=== PATIENT | female | born 1995 | race Caucasian/White ===

== ENCOUNTER 2019-07-08 14:53 | Outpatient (CLI) | payer OTHER ==
[~2019-07-08] VITALS: Ht 157.5 cm; Wt 56.4 kg
[2019-07-08 15:15] VITALS: BP 115/58
[2019-07-08] MEDS ORDERED: PNVTAB4 PO (15:19)
[2019-07-08] MEDS ORDERED: FERR325T3 PO (15:19)
[2019-07-08] MEDS ORDERED: VITA100T59 PO (15:20)
[2019-07-08 16:26] VITALS: BP 109/63
--- NOTE | 2019-07-08 16:59 | IPNPDOC ---
Text Note Date of Service The patient was seen on 07/08/19. NOTE Triage Note Jyoti is a 24yo with SIUP at approx 28wk who presents this afternoon after falling from seated position on a chair onto the floor. She states chair was wobbly and she tipped over. She did NOT hit her belly. No vaginal bleeding. No pain, no ctx, no LOF. She feels good movement. Vitals wnl, afebrile General: WDWN, resting comfortably in bed Abdomen: soft, gravid, NTTP Extremities: no edema of BLE Cat I FHRT with bl 140's, +accels, -decels, mod cecy [place]: some slight uterine irritability that completely resolved with hydration Assessment: Jyoti is a 24yo with SIUP at approx 28wk with NO evidence of placental abruption after fall from seated position onto floor withOUT hitting her belly. No ctx. Reassuring status. Normal vitals with benign exam. Plan: -discharge to home -keep next regularly scheduled OB visit on Tuesday -tylenol or warm shower for any discomfort -return precautions discussed Dr. Nida Michael MD VS,Tegan, I+O VS, Tegan, I+O Vital Signs Date Time Temp Pulse Resp B/P (MAP) Pulse Ox O2 Delivery O2 Flow Rate FiO2 07/08/19 16:26 80 18 109/63 (78) 07/08/19 15:15 98.2 Nida Michael MD Jul 08, 2019 16:59
== END 2019-07-08 16:55 | disposition home or self-care (01) ==
LOC: M LDO 14:53
PROVIDERS: ATTEND Obstetrics & Gynecology
DX: Z04.3 Encounter for examination and observation following other accident (principal); W07.XXXA Fall from chair, initial encounter; Y92.89 Other specified places as the place of occurrence of the external cause; Y93.89 Activity, other specified; Y99.9 Unspecified external cause status; Z3A.28 28 weeks gestation of pregnancy
CPT/HCPCS: G0378; G0463

== ENCOUNTER → 2019-08-16 | Outpatient (REF) | payer OTHER ==
[~2019-08-16] MED LIST: FERR325T3 PO; PNVTAB4 PO; VITA100T59 PO
== END ==
LOC: M SFHCLERA 13:26
PROVIDERS: ATTEND Nurse Practitioner Family
DX: J00 Acute nasopharyngitis [common cold] (principal)

== ENCOUNTER 2019-09-25 08:00 | Outpatient (CLI) | payer OTHER ==
[~2019-09-25] VITALS: Ht 157.5 cm; Wt 62.4 kg
[2019-09-25 08:34] VITALS: BP 105/60
--- NOTE | 2019-09-25 09:37 | IPNPDOC ---
Text Note Date of Service The patient was seen on 09/25/19. NOTE S: Ms. Penny is a 24yo at 39+6wks, EDC [id number] by LMP of [id number], presents to LND Triage for labor check. She reports +FM, denies LOF/VB. She states she has been feeling q3-5 minute contractions that started at 0500 this morning. She has no other concerns today. Her has been mostly uncomplicated. Rh Negative (A Negative) and received Rhogam at 28 weeks gestation. GBS Negative HIV Negative 1hr glucose 143; 3hr WNL O: VSS, BP normotensive, afebrile FHR 140s, moderate variability, positive accels, no decels noted CTX, mild by palpation only and occassional; not detected on TOCO VE: 60/-3, VTX by palpation A: Uncomplicated in early labor with reactive NST P: Discharged home with labor/danger precautions Early labor comfort measures reviewed f/u PRN or at TIA appointment [id number] Pt and spouse verbalized an understanding VS,Fishbone, I+O VS, Fishbone, I+O Vital Signs Date Time Temp Pulse Resp B/P (MAP) Pulse Ox O2 Delivery O2 Flow Rate FiO2 09/25/19 08:34 99.6 96 18 105/60 (75) VENUS PONCE CNM Sep 25, 2019 09:37
[2019-09-25 21:39] VITALS: BP 123/76
== END 2019-09-25 09:31 | disposition home or self-care (01) ==
LOC: M LDO 08:00
PROVIDERS: ATTEND Registered Nurse Maternal Newborn
DX: O47.1 False labor at or after 37 completed weeks of gestation (principal); Z3A.39 39 weeks gestation of pregnancy; Z79.899 Other long term (current) drug therapy
CPT/HCPCS: 59025; G0378; G0463

== ENCOUNTER 2019-09-25 14:17 | Outpatient (CLI) | payer OTHER ==
[~2019-09-25] VITALS: Ht 157.5 cm; Wt 64.0 kg
--- NOTE | 2019-09-25 15:18 | IPNPDOC ---
Text Note Date of Service The patient was seen on 09/25/19. NOTE S: Ms. Penny is a 24yo at 39+6wks who is returning to [facility] for a repeat labor check. Pt states her contractions have become longer and stronger, q5 minutes lasting 45 seconds and unbearable. She reports +FM, denies LOF/VB. O: VSS FHR 140s, moderate variability, +accels, no decels noted CTX: presents and irregular, 4-7 minutes apart, mild by palpation VE: 3.5/70/-2, posterior, BBOW palpated A: Uncomplicated in early labor with reactive NST P: Pt discharged home with progressing labor/danger precautions Early labor comfort measures reviewed f/u PRN Pt and spouse verbalized an understanding VENUS PONCE CNM Sep 25, 2019 3:18 pm
== END 2019-09-25 15:06 | disposition home or self-care (01) ==
LOC: M LDO 14:17
PROVIDERS: ATTEND Registered Nurse Maternal Newborn
DX: O47.1 False labor at or after 37 completed weeks of gestation (principal); Z3A.39 39 weeks gestation of pregnancy; Z79.899 Other long term (current) drug therapy
CPT/HCPCS: 59025; G0378

== ENCOUNTER 2019-09-25 20:40 | Inpatient (IN) | payer OTHER ==
[~2019-09-25] VITALS: Ht 157.5 cm; Wt 62.0 kg
[2019-09-25 20:55] VITALS: BP 123/76
[2019-09-25] MEDS ORDERED: NS 1,000 ML IV ONE (22:00)
[2019-09-25] MEDS ORDERED: NS 1,000 ML IV SCH (22:00)
[2019-09-25] MEDS ORDERED: BUTORPHANOL 2 MG/ML INJ (J0595) IV ONE (22:15)
[2019-09-25] MEDS ORDERED: PROMETHAZINE INJ 25 MG/ML VIAL (J2550) IV ONE (22:15)
[2019-09-26] VITALS (28 sets, daily range): BP systolic 103–135; BP diastolic 51–92
[2019-09-26] MEDS ORDERED: LR 1,000 ML IV SCH (00:45)
[2019-09-26] MEDS ORDERED: FENTANYL 2MCG/ML ROPIVACAINE 0.2% IN 0.9% NACL 100ML IVBAG As Ordered ONE (01:09)
[2019-09-26 01:13] LABS: HEMATOCRIT 34.3 % (36.0-47.0); MEAN CORPUSCULAR HEMOGLOBIN 31.7 pg (27.0-33.0); MEAN CORPUSCULAR VOLUME 90.7 fl (80.0-96.0); PLATELET COUNT, AUTOMATED 201 10^3/uL (150-450); RED BLOOD COUNT 3.78 10^6/uL (4.00-5.40); WHITE BLOOD COUNT 11.7 10^3/uL (4.0-10.0)
[2019-09-26] MEDS ORDERED: EPIDURAL/PCA KEYS XX PRN (02:15)
[2019-09-26] MEDS ORDERED: NALOXONE INJ 0.4 MG/1 ML VIAL (J2310) IV PRN (02:15)
[2019-09-26] MEDS ORDERED: FENTANYL/ROPIVACAINE/NACL BAG 100 ML EPIDURAL SCH (02:15)
[2019-09-26] MEDS ORDERED: ONDANSETRON 4MG/2ML VIAL (J2405) IV PRN (02:15)
[2019-09-26] MEDS ORDERED: EPIDURAL COMMENT XX SCH (02:15)
[2019-09-26] MEDS ORDERED: ePHEDrine SULFATE 25 MG/5 ML(5MG/ML) SYRINGE IV PRN (02:15)
[2019-09-26] MEDS ORDERED: diphenhydrAMINE INJ 50MG/ML VIAL (J1200) IV PRN (02:15)
[2019-09-26] MEDS ORDERED: REFRIGERATOR IV KEYS XX PRN (02:15)
[2019-09-26] MEDS ORDERED: LACTATED RINGER'S 1000 ML IV PRN (02:15)
[2019-09-26] MEDS ORDERED: OXYTOCIN 30 UNITS IN 0.9% NaCl 500ML IV BAG (J2590) As Ordered ONE (03:06)
[2019-09-26] MEDS ORDERED: OXYTOCIN DRIP 30 UNITS in IV 1 EA IV SCH (03:45)
[2019-09-26 05:54] LABS: CORD GAS HCO3 V 21.9 MEQ/L; CORD GAS O2 SAT V 63.4 %; CORD GAS PCO2 V 42.5 mmHg; CORD GAS PH V 7.329 UNITS; CORD GAS PO2 V 27.5 mmHg; CORD GAS SBC V 20.2 MEQ/L; CORD GAS TCO2 V 23.2 MEQ/L
[2019-09-26 05:56] LABS: CORD GAS ABE A -3.2; CORD GAS HCO3 A 27.7 MEQ/L; CORD GAS O2 SAT A 15.1 %; CORD GAS PCO2 A 72.8 mmHg; CORD GAS PH A 7.198 UNITS; CORD GAS PO2 A 12.1 mmHg; CORD GAS SBC A 19.4 MEQ/L; CORD GAS TCO2 A 29.9 MEQ/L
[2019-09-26] MEDS ORDERED: OXYTOCIN INJ 10 UNITS/ML VIAL (J2590) As Ordered ONE (06:04)
[2019-09-26] MEDS ORDERED: DIBUCAINE 1% OINTMENT 30GM TOP PRN (06:15)
[2019-09-26] MEDS ORDERED: ACETAMINOPHEN TAB 650MG DOSE (2X325MG) PO PRN (06:15)
[2019-09-26] MEDS ORDERED: METHYLERGONOVINE MALEATE 0.2 MG TAB PO PRN (06:15)
[2019-09-26] MEDS ORDERED: OXYTOCIN INJ 10 UNITS/ML VIAL (J2590) IV ONE (06:15)
[2019-09-26] MEDS ORDERED: MOM 30ML SUSPENSION UDC PO PRN (06:15)
[2019-09-26] MEDS ORDERED: OXYTOCIN DRIP 30 UNITS in IV 1 EA IV ONE (06:15)
[2019-09-26] MEDS ORDERED: IBUPROFEN 600 MG TAB PO PRN (06:15)
[2019-09-26] MEDS: IBUPROFEN 800 MG TAB PO PRN ×2 (07:10→16:20)
[2019-09-26] MEDS: PRENATAL VITAMINS CHEWABLE TABLET PO SCH (07:10)
[2019-09-26] MEDS ORDERED: SLF 3 ML SYR IV PRN (07:30)
[2019-09-26] MEDS ORDERED: SLF 3 ML SYR IV SCH (14:00)
--- NOTE | 2019-09-26 14:06 | HPE ---
DATE OF ADMISSION: 09/26/2019 HISTORY: 24-year-old, 2, para 0, abortio 1, last menstrual period (LMP) 12/20/2018, expected date of confinement (EDC) 09/26/2019 at 39 and 6. She has been seen three times in triage today and over the last 24 hours. She was kept for at least 5 hours this afternoon with no change her cervix, no vaginal loss or bleeding. PAST HISTORY: 06/2017 - 12 week spontaneous . LABS: A negative, HIV negative, hepatitis negative, RPR negative, rubella immune. Varicella immune. Pap normal. Urine negative. Gonorrhea and chlamydia negative. 1-hour glucose was 143. Her GTT 3-hour with fasting 91, one hour - 122, two hours - 114 and three hour 111. GBS is negative. Presently her urine is 1.005, pH 7, ketones +1. Blood pressure 123/76, respirations 18, pulse 99, temperature 98.6. Pelvic Examination: The cervix is soft, posterior, 3-4 cm, 80% effaced, no change from the last three previous examinations, and -3 station. She has a category one strip. Our plan of management is to hydrate the patient and give her something for sleep because of exhaustion. She will either wake up in active labor or contractions having stopped. We have tentatively booked her at 40 and 4 for induction of labor on 09/30/2019.
--- NOTE | 2019-09-26 15:50 | IPN ---
DATE: 09/26/2019 This lady, 2, para 0 was admitted after her third attempt at getting into labor. We gave her some sedation, intravenous fluids. She woke up in good active labor, had an epidural in place. On examination, she had a spontaneous rupture of membranes, time line unknown, clear liquor was noted. She was just an anterior lip at -1 station, well applied, 100% effaced, occiput transverse and a category one strip. We are going to let her labor down. Anticipate a spontaneous vaginal delivery.
[2019-09-26] MEDS: RHOGAM 300 MCG (1500 IU) INJ (J2790) IM SCH (17:21)
[2019-09-26] MEDS: MEASLES,MUMPS,RUBELLA VACCINE INJ (MMR-II) (90707) SC SCH (17:21)
[2019-09-26] MEDS: ACETAMINOPHEN 500 MG TAB PO PRN (18:50)
[2019-09-26] MEDS: DOCUSATE SODIUM 100 MG CAP PO PRN (22:42)
[2019-09-27] MEDS: IBUPROFEN 800 MG TAB PO PRN ×3 (00:15→18:51)
[2019-09-27 05:39] VITALS: BP 102/64
--- NOTE | 2019-09-27 06:17 | IPNPDOC ---
Progress Note Date of Service: Sep 27, 2019 Day#: 1 Progress Note SUBJECT: Patient is a 24-year-old 2 now Para 1 status post uncomplicated spontaneous vaginal delivery, doing well day # 1. She has been ambulating, voiding spontaneously without issue and tolerating regular diet. Breast feeding without issue. Reports lochia is like a normal period. Patient is ambulating well. Reports some cramping with . Denies any pain. OBJECTIVE: VITAL SIGNS: Within normal limits, afebrile. Alert and oriented times three. Breast without erythema. Breath sounds clear to auscultation. Heart rate: Regular rate and rhythm, no murmurs, rubs or gallops. Abdomen: Fundus firm at U-2. Soft, NTTP. Minimal lochia. Lower Extremeties without edema or tenderness. ASSESSMENT: Patient is a 24-year-old 2 now Para 1 status post uncomplicated spontaneous vaginal delivery, doing well day # 1. Vitals within normal limits, afebrile, hemodynamically stable with no evidence of infection. PLAN: 1. Continue care. 2. Tylenol and Motrin for pain. 3. Encourage breast feeding and ambulation. VS, I&O, 24H, Fishbone Vital Signs/I&O Vital Signs Date Time Temp Pulse Resp B/P (MAP) Pulse Ox O2 Delivery O2 Flow Rate FiO2 09/26/19 17:37 98.5 88 18 104/58 (73) 97 Room Air I&O- Last 24 Hours up to 6 AM 09/26/19 06:00 Intake Total 2100 ml Output Total 1000 ml Balance 1100 ml Laboratory Data 24H LABS Laboratory Tests 2 09/26/19 00:57: Nucleated Red Blood Cells % (auto) 0.0, Syphilis Serology NONREACTIVE 09/26/19 00:58: Hepatitis B Surface Antigen (Rapid) NEGATIVE 09/26/19 03:26: Serology Scanned Report Hepatitis B Testing 09/26/19 05:44: Cord Arterial Blood pH 7.198, Cord Arterial Blood PCO2 72.8, Cord Arterial Blood PO2 12.1, Cord Arterial Blood HCO3 27.7, Cord Arterial Blood Total CO2 29.9, Cord Arterial Blood Base Excess -3.2, Cord Arterial Base Excess (Standard 19.4, Cord Arterial Bld Oxygen Saturation 15.1, Cord Venous Blood pH 7.329, Cord Venous Blood PCO2 42.5, Cord Venous Blood PO2 27.5, Cord Venous Blood HCO3 21.9, Cord Venous Blood Total CO2 23.2, Cord Venous Base Excess (Actual) -4.0, Cord Venous Base Excess (Standard) 20.2, Cord Venous Blood Oxygen Saturation 63.4 CBC/BMP Laboratory Tests 09/26/19 00:57 Meggan García MD Sep 26, 2019 18:01
[2019-09-27 07:13] LABS: HEMATOCRIT 31.3 % (36.0-47.0); HEMOGLOBIN 10.7 g/dl (12.0-15.5); MEAN CORPUSCULAR HEMOGLOBIN 31.6 pg (27.0-33.0); MEAN CORPUSCULAR HGB CONC 34.2 g/dl (32.0-36.5); MEAN CORPUSCULAR VOLUME 92.3 fl (80.0-96.0); PLATELET COUNT, AUTOMATED 183 10^3/uL (150-450); RED BLOOD COUNT 3.39 10^6/uL (4.00-5.40)
[2019-09-27 07:20] VITALS: BP 108/58
[2019-09-27] MEDS: PRENATAL VITAMINS CHEWABLE TABLET PO SCH (08:27)
--- NOTE | 2019-09-27 14:00 | DN ---
DATE: 09/26/2019 This lady is a 24-year-old 2 who was admitted in spontaneous labor at 40 weeks of gestation. She had an epidural in place. Had a spontaneous vaginal delivery of a live- male , 7 pounds 9 ounces, 3430 grams, scores of 8 and 9 at one and five minutes, respectively. Arterial pH 7.19, base excess -3.2, venous pH 7.32, base excess -4.0. She did have intravenous (IV) medications as well as an epidural. She did sustain a second-degree tear through the capsule. It was repaired with a 2-0 Vicryl on a J339., both the muscle and the capsule, then the spontaneous episiotomy was repaired in the usual fashion. On examination, the uterus was well contracted under Pitocin. The sphincter was tight, intact. No occult tears. The anterior and posterior lateral ha were complete. The cervix was quite bruised, because the baby in the persistent occiput posterior (POP) position, asynclitic for a long period of time; however that will resolve on its own. The patient and baby tolerating procedure well.
[2019-09-27] MEDS: ACETAMINOPHEN 500 MG TAB PO PRN (14:16)
[2019-09-27 18:07] VITALS: BP 106/55
[2019-09-27] MEDS: DOCUSATE SODIUM 100 MG CAP PO PRN (20:10)
[2019-09-28] MEDS: IBUPROFEN 800 MG TAB PO PRN (04:23)
[2019-09-28 05:48] VITALS: BP 112/54
[2019-09-28] MEDS: MEASLES,MUMPS,RUBELLA VACCINE INJ (MMR-II) (90707) SC SCH (07:17)
[2019-09-28] MEDS: RHOGAM 300 MCG (1500 IU) INJ (J2790) IM SCH (07:17)
[2019-09-28] MEDS ORDERED: DOCU100C16 PO (07:23)
[2019-09-28] MEDS: PRENATAL VITAMINS CHEWABLE TABLET PO SCH (07:23)
[2019-09-28] MEDS ORDERED: DIBU10OI TOP (07:23)
[2019-09-28] MEDS ORDERED: IBUP80TA PO (07:23)
--- NOTE | 2019-09-28 08:41 | IPNPDOC ---
Progress Note Date of Service: Sep 28, 2019 Day#: 2 Progress Note PPD 2 SUBJECT: Jyoti is a 24yo [id number] status post uncomplicated , doing well day # 2. She has been ambulating, voiding spontaneously without issue and tolerating regular diet. Breast feeding without issue. Reports lochia is like a normal period. No f/c/n/v/CP/SOB. OBJECTIVE: VITAL SIGNS: Within normal limits, afebrile. Alert and oriented times three. Abdomen: Fundus firm at U-2. Soft, NTTP. Lower Extremeties without edema or tenderness. ASSESSMENT: Jyoti is a 24yo [id number] status post uncomplicated , doing well day # 2. Vitals within normal limits, afebrile, hemodynamically stable with no evidence of infection. PLAN: 1. Discharge to home today 2. Tylenol and Motrin for pain. 3. Encourage breast feeding and ambulation 4. Has home meds: motrin, tylenol, colace, lanolin 5. Return precautions discussed: fevers/chills, excessive vaginal bleeding, pain increasing over uterine area, breast redness/pain, anything concerning 6. [facility] at 6wk [facility] [place] [facility] 7. Vaginal rest and no heavy lifting for [address] Nida Michael MD VS, I&O, 24H, Fishbone Vital Signs/I&O Vital Signs Date Time Temp Pulse Resp B/P (MAP) Pulse Ox O2 Delivery O2 Flow Rate FiO2 09/28/19 05:48 97.9 80 16 112/54 (73) 97 Room Air Nida Michael MD Sep 28, 2019 08:41
--- NOTE | 2019-09-29 10:35 | DSES ---
DATE OF ADMISSION: 09/26/2019 DATE OF DISCHARGE: 09/28/2019 24-year-old 2 now para 1 admitted in spontaneous labor at 40 weeks of gestation had a live male infant, 7 pounds 9 ounces, 3430 grams, scores of 8 and 9 at 1 and 5 minutes respectfully. Arterial pH 7.19, base excess -3.2, venous pH 7.32, base excess -4.0. She had a second-degree tear which was repaired in usual fashion. On her second day, we discussed phlebitis, cystitis, mastitis, endometritis and cellulitis, diet, exercise, pain management, perineal, breast and wound care. On discharge, her blood pressure is 112/54, respirations 16, pulse 80, temperature 97.9. Her admitting hemoglobin as 12.0, hematocrit 34.3 and platelets were 201. Her discharge hemoglobin was 10.7, hematocrit 31.3 and platelets were 183. She is presently , doing well, voiding, passing gas, and has had a bowel movement. She is normocephalic, atraumatic. Neck full range of motion. Pupils equal and reactive to light. Distal pulses are symmetric. No evidence of DVT, PE or superficial phlebitis. Chest is clear bilaterally to the bases. No wheezes or rhonchi. No CVA tenderness. Abdomen soft, four quadrant bowel sounds are noted. Uterus is two below. She has no complaints of nausea, vomiting, diarrhea or constipation, urgency or frequency. In summary, we have a term gestation who delivered a live male infant. Plans are to get her medications at [place] and a 6-week check at which time control will be discussed, apparently her partner is going to be deployed prior to her 6-week checkup. The patient had all questions answered. 20-minute discussion.
--- NOTE | 2019-10-01 21:07 | IPN ---
DATE: 09/26/2019 This patient has requested circumcision of her male infant. After discussing risks and benefits of circumcision, the medical and nonmedical indications, the penile block and aftercare, expressed understanding of the penile block and aftercare and bleeding, signed the consent form. All questions were answered, a 20-minute discussion. We await clearance by the tarper.
== END 2019-09-28 11:45 | disposition home or self-care (01) | DRG 807 ==
LOC: M LDO 20:40 → M LDI 09-26 00:51 → M OBS 09-26 08:08
PROVIDERS: ADMIT Obstetrics & Gynecology; ATTEND Obstetrics & Gynecology
PROC: 10E0XZZ Delivery of Products of Conception, External Approach (ICD-10-PCS; principal; 2019-09-26)
PROC: 0KQM0ZZ Repair Perineum Muscle, Open Approach (ICD-10-PCS; 2019-09-26)
DX: O64.0XX0 Obstructed labor due to incomplete rotation of fetal head, not applicable or unspecified (principal); Z37.0 Single live birth; Z3A.39 39 weeks gestation of pregnancy; O70.1 Second degree perineal laceration during delivery